=== PATIENT | male | born 1975 | race Caucasian/White ===

== ENCOUNTER → 2021-03-03 08:35 | Outpatient (BNVA) | payer OTHER, SELFPAY | PROVIDERS: Family Provider Nurse Practitioner Family; PCP Nurse Practitioner Family; Visit Provider Registered Nurse | DX: R39.9 Unspecified symptoms and signs involving the genitourinary system (principal); N39.0 Urinary tract infection, site not specified; A49.9 Bacterial infection, unspecified | CPT/HCPCS: 81000 ==

== ENCOUNTER → 2022-11-12 08:55 | Outpatient (BNVA) | payer OTHER, SELFPAY | PROVIDERS: Family Provider Nurse Practitioner Family; PCP Nurse Practitioner Family; Visit Provider Nurse Practitioner Family | DX: J02.8 Acute pharyngitis due to other specified organisms (principal); B97.89 Other viral agents as the cause of diseases classified elsewhere | CPT/HCPCS: 87880 ==

== ENCOUNTER → 2023-07-19 11:05 | Outpatient (BNVA) | payer OTHER, SELFPAY | PROVIDERS: Family Provider Nurse Practitioner Family; PCP Nurse Practitioner Family; Visit Provider Nurse Practitioner Family | DX: R30.0 Dysuria (principal); R53.83 Other fatigue; K46.9 Unspecified abdominal hernia without obstruction or gangrene | CPT/HCPCS: 81000 ==

== ENCOUNTER 2023-08-02 11:30 | Outpatient (CLI) | payer OTHER, SELFPAY ==
[2023-08-02 11:32] VITALS: BMI 25.0
--- NOTE | 2023-08-02 11:32 | ECG_ITS ---
[facility] Test Date: 2023-08-02 Pat Name: Rob Snider Department: Room: Gender: Male [employer] Supervisor: Elin Louise : 1975 Requested By: Bea Nolan Order Number: [id number] Kisha MD: Bronwyn Guallpa M.D. Interpretive Statements NAME OF STUDY: TREADMILL STRESS TEST INDICATION: Chest Pain, PROCEDURE: At the baseline, the patient's blood pressure was 141/64 with a heart rate of 81. The baseline electrocardiogram showed normal sinus rhythm with normal ST-Ts.. The patient exercised for 12 minutes and 13 seconds on a standard [employer] protocol. Patient attained a maximum heart rate of 175 beats per minute(100% of the maximum predicted heart rate) with a blood pressure at the peak exercise of 208/72 mm Hg. The EKG at the peak exercise revealed no significant changes. Patient did not have any chest pain or any significant cardiac arrhythmias with the exercise During the recovery phase, there were no new changes. Blood pressure at the end of the recovery phase was 126/64 mm Hg with a heart rate of 105 per minute. CONCLUSION: 1. Normal EKG response to treadmill exercise 2. No exercise-induced chest pain or cardiac arrhythmia 3. Good exercise tolerance, attained a maximum of 17.2 METs 4. The maximum VO2 consumption was 60.2 Electronically Signed On 08-04-2023 21:17:57 [employer] by Bronwyn Guallpa M.[email or web address]
[2023-08-02 12:20] VITALS: BP 126/84; PULSE 104
== END 2023-08-02 11:31 | disposition home or self-care (01) ==
PROVIDERS: Family Provider Nurse Practitioner Family; PCP Nurse Practitioner Family; Visit Provider Nurse Practitioner Family
DX: R07.9 Chest pain, unspecified (principal); I10 Essential (primary) hypertension
CPT/HCPCS: 93017

== ENCOUNTER → 2024-05-22 10:12 | Outpatient (BNVA) | payer OTHER, SELFPAY | PROVIDERS: Family Provider Nurse Practitioner Family; PCP Nurse Practitioner Family; Visit Provider Nurse Practitioner Family | DX: T81.33XA Disruption of traumatic injury wound repair, initial encounter (principal); Y99.9 Unspecified external cause status | CPT/HCPCS: 87070; 87077; 87184 ==